=== PATIENT | female | born 1955 | race Caucasian/White ===

== ENCOUNTER → 2016-08-07 | Outpatient (CLI) | payer BC | LOC: LAB 09:59 | DX: R30.0 Dysuria (principal) ==

== ENCOUNTER → 2016-09-28 | Outpatient (CLI) | payer BC | LOC: MAMMO 08:58 | DX: Z12.31 Encounter for screening mammogram for malignant neoplasm of breast (principal) | CPT/HCPCS: G0202 ==

== ENCOUNTER → 2016-12-14 | Outpatient (CLI) | payer BC | LOC: LAB 06:28 | DX: Z00.00 Encounter for general adult medical examination without abnormal findings (principal); Z12.11 Encounter for screening for malignant neoplasm of colon ==

== ENCOUNTER → 2017-09-13 | Outpatient (CLI) | payer BC | LOC: RAD 09:32 | DX: D17.21 Benign lipomatous neoplasm of skin and subcutaneous tissue of right arm (principal) ==

== ENCOUNTER → 2017-11-15 | Outpatient (CLI) | payer BC | LOC: MAMMO 08:22 | DX: Z12.31 Encounter for screening mammogram for malignant neoplasm of breast (principal) ==

== ENCOUNTER → 2018-02-09 | Outpatient (CLI) | payer BC ==
[2018-02-09 09:58] LABS: EOS # 0.2 (0.04-0.40); EOS % 2.4 % (1.0-5.0); HEMATOCRIT 40.4 % (37.0-47.0); HEMOGLOBIN 13.5 g/dL (12.5-16.0); LYMPH# 1.9 (1.50-4.00); MEAN CELL VOLUME 90 fl (78-100); MEAN CORPUSCULAR HEMOGLOBIN 30 pg (27-31); MEAN CORPUSCULAR HGB CONC 33 g/dL (33-37); MEAN PLATELET VOLUME 9.6 fl (7.4-10.4); MONO # 0.5 (0.20-0.80); NEU # 3.7 (1.40-6.50); PLATELET COUNT 282 K/mm3 (130-400); RED BLOOD COUNT 4.48 M/mm3 (4.10-5.30); RED CELL DISTRIBUTION WIDTH 13.5 % (11.5-14.5); WHITE BLOOD COUNT 6.3 K/mm3 (4.8-10.8)
[2018-02-09 10:03] LABS: ALBUMIN 4.3 g/dL (3.5-5.0); CALCIUM 10.1 mg/dL (8.4-10.2); POTASSIUM 4.2 mmol/L (3.6-5.0); TOTAL BILIRUBIN 0.8 mg/dL (0.2-1.3); TOTAL PROTEIN 8.1 g/dL (6.3-8.2)
[2018-02-09 12:22] LABS: ERYTHROCYTE SEDIMENTATION RATE 22 mm/hr (0-30)
== END ==
LOC: LAB 09:38
PROVIDERS: Internal Medicine
DX: Z12.11 Encounter for screening for malignant neoplasm of colon (principal); Z00.00 Encounter for general adult medical examination without abnormal findings

== ENCOUNTER → 2018-02-25 | Outpatient (CLI) | payer BC | LOC: LAB 09:12 | DX: Z12.11 Encounter for screening for malignant neoplasm of colon (principal); Z00.00 Encounter for general adult medical examination without abnormal findings ==

== ENCOUNTER → 2018-06-26 | Outpatient (CLI) | payer BC | LOC: LAB 14:02 | DX: S69.90XA Unspecified injury of unspecified wrist, hand and finger(s), initial encounter (principal) ==

== ENCOUNTER → 2019-01-31 | Outpatient (CLI) | payer BC | LOC: MAMMO 15:59 | DX: Z12.31 Encounter for screening mammogram for malignant neoplasm of breast (principal) ==

== ENCOUNTER 2019-02-03 19:40 | Emergency (ER) | payer BC ==
[~2019-02-03] VITALS: Ht 162.6 cm; Wt 63.2 kg
[2019-02-03] MEDS ORDERED: ALLEGRA ALLERG180 MG PO (20:09)
[2019-02-03] MEDS ORDERED: CALTRATE 600 +1 TAB PO (20:09)
[2019-02-03] MEDS ORDERED: VITAMIN D31000 I1 PO (20:09)
[2019-02-03] MEDS ORDERED: LEVOTHYROXINE125 MCG PO (20:09)
[2019-02-03] MEDS ORDERED: PROBIOTIC1 EACH PO (20:10)
[2019-02-03] MEDS ORDERED: ZITHROMAX Z PA250 MG PO (20:10)
[2019-02-03] MEDS ORDERED: PROAIR HFA0.09 MG/AC IH (20:10)
[2019-02-03] MEDS ORDERED: METRONIDAZOLE500 M1 PO (20:11)
[2019-02-03 20:29] LABS: EOS # 0.2 (0.04-0.40); EOS % 2.4 % (1.0-5.0); HEMATOCRIT 37.5 % (37.0-47.0); HEMOGLOBIN 12.6 g/dL (12.5-16.0); LYMPH# 2.8 (1.50-4.00); MEAN CELL VOLUME 89 fl (78-100); MEAN CORPUSCULAR HEMOGLOBIN 30 pg (27-31); MEAN CORPUSCULAR HGB CONC 34 g/dL (33-37); MEAN PLATELET VOLUME 9.4 fl (7.4-10.4); MONO # 0.5 (0.20-0.80); NEU # 4.8 (1.40-6.50); PLATELET COUNT 283 K/mm3 (130-400); RED BLOOD COUNT 4.22 M/mm3 (4.10-5.30); RED CELL DISTRIBUTION WIDTH 13.3 % (11.5-14.5); WHITE BLOOD COUNT 8.3 K/mm3 (4.8-10.8)
[2019-02-03 21:25] VITALS: BP 122/75
== END 2019-02-03 21:25 | disposition home or self-care (01) ==
LOC: ED 19:40
PROVIDERS: Family Medicine
DX: T78.40XA Allergy, unspecified, initial encounter (principal); R05 Cough; R07.9 Chest pain, unspecified

== ENCOUNTER → 2019-11-16 | Outpatient (CLI) | payer BC ==
[~2019-11-16] MED LIST: ALLEGRA ALLERG180 MG PO; CALTRATE 600 +1 TAB PO; LEVOTHYROXINE125 MCG PO; METRONIDAZOLE500 M1 PO; PROAIR HFA0.09 MG/AC IH; PROBIOTIC1 EACH PO; VITAMIN D31000 I1 PO; ZITHROMAX Z PA250 MG PO
[2019-11-16 13:54] LABS: EOS # 0.3 (0.04-0.40); EOS % 3.4 % (1.0-5.0); HEMOGLOBIN 12.8 g/dL (12.5-16.0); LYMPH# 2.2 (1.50-4.00); MEAN CELL VOLUME 91 fl (78-100); MEAN CORPUSCULAR HEMOGLOBIN 30 pg (27-31); MEAN CORPUSCULAR HGB CONC 33 g/dL (33-37); MEAN PLATELET VOLUME 9.4 fl (7.4-10.4); MONO # 0.3 (0.20-0.80); NEU # 4.9 (1.40-6.50); PLATELET COUNT 255 K/mm3 (130-400); RED BLOOD COUNT 4.29 M/mm3 (4.10-5.30); RED CELL DISTRIBUTION WIDTH 13.1 % (11.5-14.5); WHITE BLOOD COUNT 7.7 K/mm3 (4.8-10.8)
[2019-11-16 14:02] LABS: POTASSIUM 3.8 mmol/L (3.5-5.1)
[2019-11-16 14:03] LABS: CALCIUM 9.6 mg/dL (8.3-10.5)
[2019-11-16 14:04] LABS: TOTAL PROTEIN 7.7 g/dL (6.2-8.1)
[2019-11-16 14:06] LABS: TOTAL BILIRUBIN 0.4 mg/dL (0.2-1.2)
[2019-11-16 15:02] LABS: ERYTHROCYTE SEDIMENTATION RATE 10 mm/hr (0-30)
== END ==
LOC: LAB 13:34
PROVIDERS: Internal Medicine
DX: Z00.00 Encounter for general adult medical examination without abnormal findings (principal); Z12.11 Encounter for screening for malignant neoplasm of colon

== ENCOUNTER → 2020-01-10 | Outpatient (CLI) | payer BC | LOC: LAB 17:47 | DX: J02.9 Acute pharyngitis, unspecified (principal); Z20.828 Contact with and (suspected) exposure to other viral communicable diseases ==

== ENCOUNTER → 2020-02-12 | Outpatient (CLI) | payer BC | LOC: MAMMO 02-06 16:00 | DX: Z12.31 Encounter for screening mammogram for malignant neoplasm of breast (principal); E03.9 Hypothyroidism, unspecified ==

== ENCOUNTER → 2020-02-19 | Outpatient (CLI) | payer BC | LOC: RAD 16:53 | DX: M25.561 Pain in right knee (principal) ==

== ENCOUNTER → 2020-08-26 | Outpatient (CLI) | payer BC | LOC: RAD 08:42 | DX: R10.11 Right upper quadrant pain (principal) ==

== ENCOUNTER → 2020-08-28 | Outpatient (CLI) | payer BC ==
[2020-08-28 14:55] LABS: BASO # 0.03 (0.02-0.10); EOS # 0.07 (0.04-0.40); EOS % 0.6 % (1.0-5.0); HEMATOCRIT 40.1 % (37.0-47.0); HEMOGLOBIN 13.5 g/dL (12.5-16.0); LYMPH# 1.45 (1.50-4.00); MEAN CELL VOLUME 91 fl (78-100); MEAN CORPUSCULAR HEMOGLOBIN 31 pg (27-31); MEAN CORPUSCULAR HGB CONC 34 g/dL (33-37); MEAN PLATELET VOLUME 9.4 fl (7.4-10.4); MONO # 0.38 (0.20-0.80); NEU # 9.39 (1.40-6.50); PLATELET COUNT 264 K/mm3 (130-400); RED BLOOD COUNT 4.42 M/mm3 (4.10-5.30); RED CELL DISTRIBUTION WIDTH 12.6 % (11.5-14.5); WHITE BLOOD COUNT 11.3 K/mm3 (4.8-10.8)
[2020-08-28 15:02] LABS: POTASSIUM 3.6 mmol/L (3.5-5.1)
[2020-08-28 15:03] LABS: CALCIUM 9.4 mg/dL (8.3-10.5)
[2020-08-28 15:04] LABS: TOTAL PROTEIN 7.5 g/dL (6.2-8.1)
[2020-08-28 15:06] LABS: TOTAL BILIRUBIN 0.5 mg/dL (0.2-1.2)
== END ==
LOC: LAB 14:41
PROVIDERS: Internal Medicine
DX: R10.11 Right upper quadrant pain (principal)

== ENCOUNTER → 2020-09-04 | Outpatient (CLI) | payer BC | LOC: LAB 07:02 | PROVIDERS: Internal Medicine | DX: R10.84 Generalized abdominal pain (principal) ==

== ENCOUNTER → 2020-09-16 | Outpatient (CLI) | payer BC | LOC: RAD 09:43 | DX: R10.84 Generalized abdominal pain (principal) | CPT/HCPCS: Q9967 ==

== ENCOUNTER → 2021-04-03 | Outpatient (CLI) | payer BC ==
[2021-04-03 08:05] LABS: BASO # 0.04 K/mm3 (0.02-0.10); EOS # 0.17 K/mm3 (0.04-0.40); EOS % 2.9 % (1.0-5.0); HEMATOCRIT 38.9 % (37.0-47.0); HEMOGLOBIN 12.9 g/dL (12.5-16.0); LYMPH# 2.36 K/mm3 (1.50-4.00); MEAN CELL VOLUME 93 fl (78-100); MEAN CORPUSCULAR HEMOGLOBIN 31 pg (27-31); MEAN CORPUSCULAR HGB CONC 33 g/dL (33-37); MEAN PLATELET VOLUME 9.5 fl (7.4-10.4); MONO # 0.36 K/mm3 (0.20-0.80); NEU # 3.01 K/mm3 (1.40-6.50); PLATELET COUNT 283 K/mm3 (130-400); RED CELL DISTRIBUTION WIDTH 12.9 % (11.5-14.5)
[2021-04-03 08:11] LABS: POTASSIUM 4.7 mmol/L (3.5-5.1)
[2021-04-03 08:12] LABS: CALCIUM 9.9 mg/dL (8.3-10.5)
[2021-04-03 08:13] LABS: TOTAL PROTEIN 7.5 g/dL (6.2-8.1)
[2021-04-03 08:15] LABS: TOTAL BILIRUBIN 0.4 mg/dL (0.2-1.2)
[2021-04-03 09:18] LABS: ERYTHROCYTE SEDIMENTATION RATE 20 mm/hr (0-30)
== END ==
LOC: LAB 07:38
PROVIDERS: Internal Medicine
DX: Z00.00 Encounter for general adult medical examination without abnormal findings (principal)

== ENCOUNTER → 2021-04-20 | Outpatient (CLI) | payer BC | LOC: MAMMO 10:49 | DX: Z12.31 Encounter for screening mammogram for malignant neoplasm of breast (principal) ==

== ENCOUNTER → 2021-04-25 | Outpatient (CLI) | payer BC | LOC: LAB 11:17 | DX: Z12.11 Encounter for screening for malignant neoplasm of colon (principal) ==

== ENCOUNTER → 2022-01-14 | Outpatient (CLI) | payer BC | LOC: RAD 16:55 | DX: M25.512 Pain in left shoulder (principal); M51.36 Other intervertebral disc degeneration, lumbar region ==

== ENCOUNTER 2022-04-20 08:00 | Outpatient (RCR) | payer BC | END 2022-05-18 | disposition home or self-care (01) | LOC: PT | DX: M54.31 Sciatica, right side (principal) ==

== ENCOUNTER → 2023-02-11 | Outpatient (CLI) | payer BC ==
[2023-02-11 12:37] LABS: HEMATOCRIT 38.7 % (37.0-47.0); HEMOGLOBIN 12.9 g/dL (12.5-16.0); MEAN PLATELET VOLUME 9.2 fl (7.4-10.4); RED BLOOD COUNT 4.25 M/mm3 (4.10-5.30)
[2023-02-11 13:25] LABS: D-DIMER 0.84 mg/L FEU (0.15-0.50)
== END ==
LOC: LAB 12:05
PROVIDERS: Nurse Practitioner Family
DX: M25.561 Pain in right knee (principal); M25.469 Effusion, unspecified knee

== ENCOUNTER → 2023-08-11 | Outpatient (CLI) | payer BC ==
[2023-08-11 10:05] LABS: BASO # 0.03 K/mm3 (0.02-0.10); EOS # 0.17 K/mm3 (0.04-0.40); EOS % 2.4 % (1.0-5.0); HEMATOCRIT 39.3 % (37.0-47.0); LYMPH# 1.95 K/mm3 (1.50-4.00); MEAN CELL VOLUME 92 fl (78-100); MEAN CORPUSCULAR HEMOGLOBIN 31 pg (27-31); MEAN CORPUSCULAR HGB CONC 33 g/dL (33-37); MEAN PLATELET VOLUME 9.1 fl (7.4-10.4); MONO # 0.42 K/mm3 (0.20-0.80); NEU # 4.54 K/mm3 (1.40-6.50); PLATELET COUNT 290 K/mm3 (130-400); RED BLOOD COUNT 4.26 M/mm3 (4.10-5.30); RED CELL DISTRIBUTION WIDTH 12.9 % (11.5-14.5); WHITE BLOOD COUNT 7.1 K/mm3 (4.8-10.8)
[2023-08-11 10:16] LABS: ALBUMIN 3.8 g/dL (3.4-4.8)
[2023-08-11 10:17] LABS: CALCIUM 9.7 mg/dL (8.3-10.5)
[2023-08-11 10:21] LABS: TOTAL BILIRUBIN 0.7 mg/dL (0.2-1.2)
== END ==
LOC: LAB 09:49
PROVIDERS: Internal Medicine
DX: J45.909 Unspecified asthma, uncomplicated (principal); E03.4 Atrophy of thyroid (acquired); K90.9 Intestinal malabsorption, unspecified; M25.50 Pain in unspecified joint; E78.2 Mixed hyperlipidemia

== ENCOUNTER → 2023-08-19 | Outpatient (CLI) | payer BC ==
[2023-08-20 18:19] LABS: ANA SCREEN with REFLEX Negative (Negative)
[2023-08-22 21:08] LABS: ANTI-CYC CITRULLINATED PEPT AB >250 units (0-19)
== END ==
LOC: RAD 08:37
PROVIDERS: Internal Medicine
DX: Z12.31 Encounter for screening mammogram for malignant neoplasm of breast (principal); M19.072 Primary osteoarthritis, left ankle and foot; M19.071 Primary osteoarthritis, right ankle and foot; M79.641 Pain in right hand; M79.642 Pain in left hand; M25.531 Pain in right wrist; R07.89 Other chest pain

== ENCOUNTER → 2024-01-04 | Outpatient (CLI) | payer BC ==
[2024-01-04 13:40] LABS: HEMATOCRIT 37.1 % (37.0-47.0); HEMOGLOBIN 12.5 g/dL (12.5-16.0); MEAN PLATELET VOLUME 8.8 fl (7.4-10.4); RED BLOOD COUNT 4.13 M/mm3 (4.10-5.30); RED CELL DISTRIBUTION WIDTH 12.5 % (11.5-14.5); WHITE BLOOD COUNT 8.1 K/mm3 (4.8-10.8)
[2024-01-04 13:46] LABS: CALCIUM 9.3 mg/dL (8.3-10.5)
== END ==
LOC: LAB 13:25
PROVIDERS: Podiatrist Sports Medicine
DX: M20.42 Other hammer toe(s) (acquired), left foot (principal); M77.42 Metatarsalgia, left foot

== ENCOUNTER → 2024-01-19 | Outpatient (CLI) | payer BC ==
[2024-01-19 09:39] LABS: CALCIUM 9.6 mg/dL (8.3-10.5)
[2024-01-19 09:40] LABS: BASO # 0.01 K/mm3 (0.02-0.10); EOS # 0.24 K/mm3 (0.04-0.40); HEMATOCRIT 39.3 % (37.0-47.0); LYMPH# 1.57 K/mm3 (1.50-4.00); MEAN CELL VOLUME 91 fl (78-100); MEAN CORPUSCULAR HEMOGLOBIN 30 pg (27-31); MEAN CORPUSCULAR HGB CONC 33 g/dL (33-37); MEAN PLATELET VOLUME 8.9 fl (7.4-10.4); MONO # 0.36 K/mm3 (0.20-0.80); NEU # 3.81 K/mm3 (1.40-6.50); PLATELET COUNT 266 K/mm3 (130-400); RED BLOOD COUNT 4.33 M/mm3 (4.10-5.30); RED CELL DISTRIBUTION WIDTH 12.8 % (11.5-14.5)
[2024-01-19 09:41] LABS: TOTAL PROTEIN 7.2 g/dL (6.2-8.1)
[2024-01-19 09:42] LABS: TOTAL BILIRUBIN 0.5 mg/dL (0.2-1.2)
[2024-01-19 09:47] LABS: MAGNESIUM 1.82 mg/dL (1.60-2.60)
== END ==
LOC: LAB 09:19
PROVIDERS: Internal Medicine
DX: K90.9 Intestinal malabsorption, unspecified (principal); M05.79 Rheumatoid arthritis with rheumatoid factor of multiple sites without organ or systems involvement

== ENCOUNTER → 2024-03-16 | Outpatient (CLI) | payer BC ==
[2024-03-16 16:06] LABS: BASO # 0.03 K/mm3 (0.02-0.10); EOS # 0.19 K/mm3 (0.04-0.40); EOS % 2.1 % (1.0-5.0); HEMATOCRIT 38.5 % (37.0-47.0); HEMOGLOBIN 12.8 g/dL (12.5-16.0); MEAN CELL VOLUME 91 fl (78-100); MEAN CORPUSCULAR HEMOGLOBIN 30 pg (27-31); MEAN CORPUSCULAR HGB CONC 33 g/dL (33-37); MEAN PLATELET VOLUME 8.8 fl (7.4-10.4); MONO # 0.61 K/mm3 (0.20-0.80); NEU # 6.56 K/mm3 (1.40-6.50); PLATELET COUNT 267 K/mm3 (130-400); RED BLOOD COUNT 4.23 M/mm3 (4.10-5.30); RED CELL DISTRIBUTION WIDTH 12.8 % (11.5-14.5); WHITE BLOOD COUNT 9.1 K/mm3 (4.8-10.8)
[2024-03-16 16:19] LABS: ALBUMIN 4.1 g/dL (3.4-4.8)
[2024-03-16 16:20] LABS: CALCIUM 9.8 mg/dL (8.3-10.5)
[2024-03-16 16:21] LABS: TOTAL PROTEIN 7.4 g/dL (6.2-8.1)
[2024-03-16 16:23] LABS: TOTAL BILIRUBIN 0.3 mg/dL (0.2-1.2)
== END ==
LOC: LAB 15:41
PROVIDERS: Physician Assistant
DX: R05.9 Cough, unspecified (principal)